=== PATIENT | female | born 1955 | race Caucasian/White ===

== ENCOUNTER 2016-09-11 04:41 | Emergency (ER) | payer MEDICARE, MEDICAID ==
[~2016-09-11] VITALS: Ht 172.7 cm; Wt 109.0 kg
--- OUTSIDE RECORDS SUMMARY | 2016-09-11 04:51 | XMS REPORT | Summary of Care ---
Author Author Maldonado Hi M.D. Organization Unknown Address Unknown Phone Unavailable Care Team Providers Care Volleyball Player Name Role Phone Maldonado Hi M.D. Unavailable Unavailable Maldonado Hi Unavailable Unavailable Unavailable Unavailable Functional Status Name Dates Details Functional status health issues are not documented Status: Name Dates Details Cognitive status health issues are not documented Status: Problems Name Dates Details Anxiety (300.00, F41.9) Status: Active Dizziness (780.4, R42) Status: Active Hormone imbalance (259.9, E34.9) Status: Active Impaired glucose tolerance (790.22, R73.02) Status: Active GERD without esophagitis (530.81, K21.9) Status: Active ASHD (arteriosclerotic heart disease) (414.00, I25.10) Status: Active Depression (311, F32.9) Status: Active HTN (hypertension) (401.9, I10) Status: Active Hypercholesterolemia (272.0, E78.00) Status: Active Pain in hand (729.5, M79.643) Status: Active Medications Name Dates Details Lisinopril-Hydrochlorothiazide 20-25 MG Oral Tablet TAKE 1 TABLET DAILY. Quantity: 90 Refills: 3 Kolton M.Maldonado Pedersen Start 07-Sep-2015 Active Simvastatin 40 MG Oral Tablet TAKE 1 TABLET DAILY. Quantity: 90 Refills: 3 Vanzant M.Nuvia, Maldonado Start 15-Sep-2015 Active Nitrostat 0.4 MG Sublingual Tablet Sublingual PLACE 1 TABLET UNDER THE TONGUE EVERY 5 MINUTES FOR UP TO 3 DOSES NEEDED FOR CHEST PAIN.CALL 911 IF PAIN PERSISTS. Quantity: 60 Refills: 0 Maldonado Hi M.D. Start 15-Sep-2015 Active Imitrex 25 MG Oral Tablet Take 2 po PRN along with 2 Naprosyn Refills: 0 Maldonado Hi M.D. Start 15-Sep-2015 Active Atenolol 50 MG Oral Tablet TAKE 1 TABLET TWICE DAILY. Quantity: 60 Refills: 11 Vanzant MKatlyn, Maldonado Start 15-Sep-2015 Active TraMADol HCl - 50 MG Oral Tablet TAKE 1 TABLET EVERY 6 HOURS NEEDED FOR PAIN. Quantity: 240 Refills: 2 Maldonado Hi M.D. Start 15-Sep-2015 Active Omeprazole 20 MG Oral Capsule Delayed Release TAKE 1 CAPSULE DAILY. Quantity: 90 Refills: 3 Maldonado Hi M.D. Start 15-Sep-2015 Active Estradiol 0.5 MG Oral Tablet TAKE 1 TABLET DAILY DIRECTED. Quantity: 90 Refills: 3 Maldonado Hi M.D. Start 19-Sep-2015 Active Allergies and Adverse Reactions Name Dates Details Penicillins (Allergy) Status: Active Sulfa Drugs (Allergy) Status: Active Tetanus Toxoids (Allergy) Status: Active Past Medical History Name Dates Details History of migraine (V12.49, Z86.69) Status: Resolved Procedures Procedure Dates Details History of Hysterectomy History of Tubal Ligation Procedures not documented Immunization Name Dates Details Immunizations not documented Family History Name Dates Details Family history of migraine headaches (V17.2, Z82.0) Status: Active Family history of CAD (coronary artery disease) (414.00, I25.10) Status: Active Name Dates Details Family history of CAD (coronary artery disease) (414.00, I25.10) Status: Active Family history of type 2 diabetes mellitus (V18.0, Z83.3) Status: Active Social History Name Dates Details Unknown if ever smoked Vital Signs Date Test Result Details No Known Vitals to report Results Date Description Value Details Results not documented Plan of Care Name Dates Details Planned Observations LIPID PROFILE 1184 On 01-Jan-2016 Intent Planned Goals not documented Planned Encounters Appointment; Provider: Maldonado Hi M.D. On 08-Jul-2016 10:00 Interventions Provided Medication ChangesEstradiol 0.5 MG Oral Tablet - RenewNitrostat 0.4 MG Sublingual Tablet Sublingual - RenewTraMADol HCl - 50 MG Oral Tablet - Renew Instructions Name Dates Details Instructions not documented Encounters Appointment; Maldonado Hi M.D. Encounter Diagnosis: Problem not documented On 19-Sep-2015 10:30
[2016-09-11] MEDS ORDERED: NITROGLYCERIN SUBLINGUAL 0.4 MG (NITROQUICK) TABLET SL PRN (04:55)
[2016-09-11] MEDS ORDERED: SODIUM CHLORIDE FLUSH 10 ML SYR IV PRN (04:55)
[2016-09-11] MEDS ORDERED: ASPIRIN 81 MG CHEW (LOW-DOSE) PO ONE (04:55)
[2016-09-11] MEDS ORDERED: ONDANSETRON 2 MG/ML (Z0FRAN) 2 ML VIAL IV ONE (04:55)
[2016-09-11] MEDS ORDERED: SODIUM CHLORIDE FLUSH 3 ML SYR IV PRN (04:55)
[2016-09-11] MEDS ORDERED: morphine INJ 4 MG/ML 1 ML SYRINGE IV PRN (04:55)
[2016-09-11] MEDS ORDERED: SODIUM CHLORIDE 250 ML IV PRN (04:55)
[2016-09-11] MEDS ORDERED: MAGNESIUM 1 GM/100 ML IVPB 100 ML IV ONE (05:10)
[2016-09-11 05:16] LABS: BASOPHILS % (AUTO) 0 % (0-2); EOSINOPHILS % (AUTO) 0 % (0-4); LYMPHOCYTES # (AUTO) 1.2 X10^3; MEAN CORPUSCULAR HEMOGLOBIN 29.5 PG (26.0-34.0); MEAN CORPUSCULAR HGB CONC 33.8 g/dL (31.0-37.0); MEAN CORPUSCULAR VOLUME 87 FL (80-100); MEAN PLATELET VOLUME 12.2 FL (6.0-9.5); MONOCYTES # (AUTO) 1.3 X10^3; MONOCYTES % (AUTO) 12 % (3-11); NEUTROPHILS # (AUTO) 7.7 X10^3; NEUTROPHILS % (AUTO) 75 % (51-67); PLATELET COUNT 271 10^3uL (150-450); WHITE BLOOD COUNT 10.26 10^3uL (4.0-11.0)
[2016-09-11 05:35] LABS: ALBUMIN 4.7 g/dL (3.4-5.0); ALKALINE PHOSPHATASE 79 U/L (38-126); ANION GAP 17.8 MEQ/L (3-15); BUN/CREATININE RATIO 28 (10-20); CALCULATED IONIZED CALCIUM 4.1 mg/dL (3.8-4.6); CREATINE KINASE 70 U/L (30-135)
[2016-09-11] MEDS ORDERED: ATN50T PO (05:54)
[2016-09-11] MEDS ORDERED: CTLP20T PO (05:54)
[2016-09-11] MEDS ORDERED: LISI1TAB10 PO (05:54)
[2016-09-11] MEDS ORDERED: SIMV40TA2 PO (05:54)
[2016-09-11] MEDS ORDERED: ESTR0.5T PO (05:54)
[2016-09-11] MEDS ORDERED: OMEP20CA12 PO (05:54)
--- NOTE | 2016-09-11 06:16 | NUR ---
[employer] at [facility] notified and speaking with Dr. Badillo.
[2016-09-11 07:16] VITALS: BP 151/86
--- NOTE | 2016-09-11 07:48 | Diagnostic Imaging Report ---
EXAM: CHEST 1 VIEW, AP/PA ONLY*. INDICATION: Chest pain. COMPARISON: Chest radiograph 12/21/2007. FINDINGS: Cardiomegaly, similar to the prior exam. Large cardiac fat pad similar to the 2008 exam. No pleural effusion, dense consolidation, or pneumothorax. No acute osseous findings. IMPRESSION: Cardiomegaly. No acute cardiopulmonary findings. Dictated by: Dictated on workstation # [id number]
== END 2016-09-11 07:19 | disposition short-term general hospital (02) ==
LOC: EDUNIT# 04:41 → ED 04:47
DX: I45.81 Long QT syndrome (principal)
CPT/HCPCS: 36415; 71010; 80053; 82550; 82553; 83735; 83880; 84484; 85025; 85610; 85730; 93005; 96365; 99285; J3475; J7050; 93010

== ENCOUNTER → 2016-09-11 | Outpatient (CLI) | payer MEDICARE, MEDICAID ==
[~2016-09-11] MED LIST: ATN50T PO; CTLP20T PO; ESTR0.5T PO; LISI1TAB10 PO; OMEP20CA12 PO; SIMV40TA2 PO
== END ==
LOC: EMS 04:35
PROVIDERS: ATTEND Family Medicine
DX: R07.89 Other chest pain (principal); I20.0 Unstable angina; I45.81 Long QT syndrome; R94.31 Abnormal electrocardiogram [ECG] [EKG]; T44.7X1A Poisoning by beta-adrenoreceptor antagonists, accidental (unintentional), initial encounter